=== PATIENT | female | born 1950 | race African-American/Black ===

== ENCOUNTER 2021-07-13 16:33 | Inpatient (IN) | payer MEDICARE ==
[~2021-07-13] VITALS: Ht 160 cm; Wt 83.0 kg
[~2021-07-13 16:33] MED LIST: ATOR10TA69 PO; CARI350T27 PO; FERR-63 PO; FOLI-43 PO; METH4TAB17 PO; MULT-1146 PO; OLME1TAB30 PO; ROSU5TAB PO; [UNRECOGNIZED DRUG - CODE] PO
[2021-07-13] MEDS ORDERED: SODIUM CHLORIDE 0.9% 1000ML BAG (SEPSIS BOLUS) IV ONE (17:00)
[2021-07-13 18:25] LABS: HEMATOCRIT. 35.7 % (36.0-48.0); HEMOGLOBIN. 11.8 g/dL (12.0-16.0); MEAN CORPUSCULAR HEMOGLOBIN 24.8 pg (28.0-32.0); MEAN CORPUSCULAR VOLUME 75.2 fL (81.0-99.0); MEAN PLATELET VOLUME 7.1 fl (7.4-10.4); PLATELET 421 x1000/uL (130-400); RED BLOOD CELL COUNT 4.74 mill/uL (4.2-5.4); RED CELL DISTRIBUTION WIDTH 19.4 % (11.6-14.6)
[2021-07-13 18:26] LABS: CHLORIDE 110 mEq/L (98-107)
[2021-07-13 18:46] LABS: CREATINE KINASE 1944 IU/L (26-192)
[2021-07-13 19:00] LABS: PLATELET ESTIMATE INCREASED
[2021-07-13 20:22] LABS: CLARITY URINE TURBID (CLEAR); COLOR URINE ORANGE (YELLOW); KETONES URINE TRACE (NEGATIVE); LEUKOCYTE ESTERASE URINE 3+ (NEGATIVE); NITRITE URINE POSITIVE (NEGATIVE); OCCULT BLOOD URINE 3+ (NEGATIVE); PROTEIN URINE 2+ (NEGATIVE); SPECIFIC GRAVITY URINE 1.014 (1.005-1.030)
[2021-07-13] MEDS ORDERED: CEFTRIAXONE 1 G PREMIX 50 ML IV ONE (22:00)
[2021-07-13] MEDS ORDERED: MAGNESIUM/ALUMINUM HYDROXIDE/SIMETHICONE 30ML UDC PO PRN (23:15)
[2021-07-13] MEDS ORDERED: GUAIFENESIN 200MG/10ML SUGAR FREE UDC PO PRN (23:15)
[2021-07-14 00:36] VITALS: BP 145/78
[2021-07-14] MEDS: SODIUM CHLORIDE 0.45% 1,000 ML IV SCH ×2 (01:26→08:00)
[2021-07-14 07:49] VITALS: BP 149/81
[2021-07-14] MEDS: ACETAMINOPHEN 325MG TABLET PO PRN ×2 (08:00→21:32)
[2021-07-14] MEDS: ENOXAPARIN 30MG/0.3ML SYR SUBCUT SCH (08:00)
[2021-07-14 08:11] LABS: HEMATOCRIT. 32.4 % (36.0-48.0); HEMOGLOBIN. 10.7 g/dL (12.0-16.0); MEAN CORPUSCULAR HEMOGLOBIN 24.7 pg (28.0-32.0); MEAN CORPUSCULAR VOLUME 74.6 fL (81.0-99.0); MEAN PLATELET VOLUME 7.1 fl (7.4-10.4); PLATELET 395 x1000/uL (130-400); RED BLOOD CELL COUNT 4.34 mill/uL (4.2-5.4); RED CELL DISTRIBUTION WIDTH 19.3 % (11.6-14.6)
[2021-07-14] MEDS ORDERED: POTASSIUM CHLORIDE 20MEQ TABLET SR PO NR (11:00)
[2021-07-14] MEDS ORDERED: POTASSIUM CHLORIDE INJ 40 MEQ in DEXT 5% WATER 250 ML IV ONE (11:00)
[2021-07-14] MEDS: KCL 20MEQ/100ML X 2 FOR TOTAL KCL 40MEQ/200ML IV SCH ×2 (11:43→14:04)
[2021-07-14 11:56] VITALS: BP 142/76
[2021-07-14] MEDS ORDERED: ASPI-1497 PO (12:37)
[2021-07-14] MEDS ORDERED: DICL100G31 TP (12:37)
[2021-07-14] MEDS ORDERED: OMEP20CA14 PO (12:37)
[2021-07-14] MEDS ORDERED: VANCOMYCIN 1500MG in DEXTROSE 5% WATER 250ML IV NR (14:00)
[2021-07-14] MEDS: ASPIRIN 81MG EC TABLET PO SCH (14:09)
[2021-07-14] MEDS: OMEPRAZOLE 20MG CAPSULE EXTENDED RELEASE PO SCH (14:09)
[2021-07-14] MEDS: FOLIC ACID 1MG TABLET PO SCH (14:10)
[2021-07-14] MEDS: LOSARTAN POTASSIUM 25 MG TABLET PO SCH (14:10)
[2021-07-14] MEDS: DEXTROSE 5% WATER 1,000 ML IV SCH ×2 (14:25→21:14)
[2021-07-14 15:42] LABS: PLATELET ESTIMATE NORMAL
[2021-07-14 15:43] VITALS: BP 140/70
[2021-07-14 20:00] VITALS: BP 147/79
[2021-07-14] MEDS ORDERED: CEFTRIAXONE 1,000 MG in DEXTROSE 5% WATER 50 ML IV SCH ×4 (21:00)
[2021-07-15] VITALS: BP 157/80
[2021-07-15] MEDS: ACETAMINOPHEN 325MG TABLET PO PRN ×3 (02:12→15:46)
[2021-07-15 04:00] VITALS: BP 147/81
[2021-07-15 04:09] LABS: HEMATOCRIT. 32.2 % (36.0-48.0); HEMOGLOBIN. 10.6 g/dL (12.0-16.0); MEAN CORPUSCULAR HEMOGLOBIN 24.4 pg (28.0-32.0); MEAN CORPUSCULAR VOLUME 74.1 fL (81.0-99.0); MEAN PLATELET VOLUME 6.8 fl (7.4-10.4); PLATELET 336 x1000/uL (130-400); RED BLOOD CELL COUNT 4.35 mill/uL (4.2-5.4); RED CELL DISTRIBUTION WIDTH 19.4 % (11.6-14.6)
[2021-07-15 04:22] LABS: PHOSPHORUS 2.4 mg/dL (2.5-4.9)
[2021-07-15] MEDS: KCL 20MEQ/100ML PREMIX 100 ML IV SCH ×2 (05:40→08:14)
[2021-07-15] MEDS: DEXTROSE 5% WATER 1,000 ML IV SCH ×3 (05:41→23:15)
[2021-07-15] MEDS: OMEPRAZOLE 20MG CAPSULE EXTENDED RELEASE PO SCH ×2 (05:50→08:14)
[2021-07-15 07:54] VITALS: BP 152/80
[2021-07-15] MEDS: LOSARTAN POTASSIUM 25 MG TABLET PO SCH (08:14)
[2021-07-15] MEDS: ASPIRIN 81MG EC TABLET PO SCH (08:14)
[2021-07-15] MEDS: FOLIC ACID 1MG TABLET PO SCH (08:14)
[2021-07-15] MEDS: AMLODIPINE 10MG TABLET PO SCH (08:14)
[2021-07-15] MEDS: ENOXAPARIN 30MG/0.3ML SYR SUBCUT SCH (08:15)
[2021-07-15 11:35] VITALS: BP 139/76
[2021-07-15] MEDS ORDERED: NALOXONE HCL 0.4MG/ML VIAL IV PRN (14:00)
[2021-07-15 16:04] VITALS: BP 145/78
[2021-07-15 20:00] VITALS: BP 146/84
[2021-07-15] MEDS ORDERED: VANCOMYCIN 1GM PMX (XELLIA) 200 ML IV SCH (21:00)
[2021-07-15 23:50] LABS: PLATELET ESTIMATE NORMAL
[2021-07-16] VITALS (7 sets, daily range): BP systolic 126–167; BP diastolic 75–90
[2021-07-16] MEDS: ACETAMINOPHEN 325MG TABLET PO PRN ×3 (02:57→14:15)
[2021-07-16] MEDS: CLONIDINE 0.1MG TABLET PO PRN ×2 (03:13→19:58)
[2021-07-16] MEDS: DEXTROSE 5% WATER 1,000 ML IV SCH ×3 (06:10→22:21)
[2021-07-16 07:05] LABS: HEMATOCRIT. 32.7 % (36.0-48.0); HEMOGLOBIN. 10.7 g/dL (12.0-16.0); MEAN CORPUSCULAR HEMOGLOBIN 24.5 pg (28.0-32.0); MEAN CORPUSCULAR VOLUME 74.9 fL (81.0-99.0); MEAN PLATELET VOLUME 6.8 fl (7.4-10.4); PLATELET 272 x1000/uL (130-400); RED BLOOD CELL COUNT 4.37 mill/uL (4.2-5.4); RED CELL DISTRIBUTION WIDTH 19.9 % (11.6-14.6)
[2021-07-16 07:13] LABS: PHOSPHORUS 2.6 mg/dL (2.5-4.9)
[2021-07-16] MEDS: LOSARTAN POTASSIUM 25 MG TABLET PO SCH (08:12)
[2021-07-16] MEDS: FAMOTIDINE 20MG TABLET PO SCH (08:12)
[2021-07-16] MEDS: ASPIRIN 81MG EC TABLET PO SCH (08:12)
[2021-07-16] MEDS: AMLODIPINE 10MG TABLET PO SCH (08:12)
[2021-07-16] MEDS: FOLIC ACID 1MG TABLET PO SCH (08:12)
[2021-07-16] MEDS: ENOXAPARIN 30MG/0.3ML SYR SUBCUT SCH (08:13)
[2021-07-16 12:40] LABS: PLATELET ESTIMATE NORMAL
[2021-07-16] MEDS: HYDROCODONE/ACETAMINOPHEN 5/325MG TABLET PO PRN ×2 (16:00→19:59)
[2021-07-16] MEDS ORDERED: DEXTROSE 50% WATER 50ML SYRINGE IV PRN (17:45)
[2021-07-16 18:04] LABS: BG BASE EXCESS -4.3 mmol/L (-2.0-2.0); BG CARBOXYHEMOGLOBIN 0.8 % (0.5-1.5); BG DEOXYHEMOGLOBIN 3.6 % (0.0-5.0); BG FRACTION INSPIRED OXYGEN 21; BG HCO3 ACT 18.4 mmol/L (22.0-26.0); BG METHEMOGLOBIN 0.3 % (0.0-1.5); BG OXYGEN SATURATION 96.4 % (92.0-98.5); BG OXYHEMOGLOBIN 95.3 % (94.0-97.0); BG PCO2 26.9 mmHg (35.0-45.0); BG PH 7.454 (7.350-7.450); BG PO2 87.5 mmHg (75.0-100.0); BG SAMPLE SITE RIGHT BRACHIAL; BG TOTAL HEMOGLOBIN 10.7 g/dL (12.0-18.0); BG VENT MODE ROOM AIR
[2021-07-16] MEDS ORDERED: POTASSIUM CHLORIDE INJ 40 MEQ in DEXT 5% WATER 250 ML IV ONE (18:45)
[2021-07-16] MEDS ORDERED: PIPERACILLIN/TAZOBACTAM 3.375 G in DEXTROSE 5% WATER 50 ML IV SCH (20:00)
[2021-07-16] MEDS: KCL 20MEQ/100ML X 2 FOR TOTAL KCL 40MEQ/200ML IV SCH ×2 (20:22→22:20)
[2021-07-16] MEDS: VANCOMYCIN 1GM PMX (XELLIA) 200 ML IV SCH (20:23)
[2021-07-16 20:39] LABS: INR 1.1; PROTHROMBIN TIME 11.6 sec (9.6-11.0)
[2021-07-16] MEDS: BLOOD SUGAR DIAGNOSTIC STRIP TEST SCH (21:14)
[2021-07-16] MEDS: INSULIN LISPRO 100 UNITS/ML SUBCUT SCH (22:19)
[2021-07-16] MEDS: PIPERACILLIN/TAZOBACTAM 3.375 G in DEXTROSE 5% WATER 50 ML IV SCH (22:21)
[2021-07-17] VITALS (10 sets, daily range): BP systolic 137–153; BP diastolic 56–88
[2021-07-17] MEDS: HYDROCODONE/ACETAMINOPHEN 5/325MG TABLET PO PRN ×2 (00:46→05:45)
[2021-07-17] MEDS: PIPERACILLIN/TAZOBACTAM 3.375 G in DEXTROSE 5% WATER 50 ML IV SCH ×3 (05:44→21:12)
[2021-07-17 06:00] LABS: HEMATOCRIT. 33.2 % (36.0-48.0); MEAN CORPUSCULAR HEMOGLOBIN 24.6 pg (28.0-32.0); MEAN CORPUSCULAR VOLUME 74.5 fL (81.0-99.0); MEAN PLATELET VOLUME 6.9 fl (7.4-10.4); PLATELET 254 x1000/uL (130-400); RED BLOOD CELL COUNT 4.46 mill/uL (4.2-5.4); RED CELL DISTRIBUTION WIDTH 19.9 % (11.6-14.6)
[2021-07-17 06:20] LABS: CHLORIDE 116 mEq/L (98-107)
[2021-07-17 06:28] LABS: CREATINE KINASE 48 IU/L (26-192)
[2021-07-17 07:13] LABS: *CREATININE RANDOM URINE 48.7 mg/dL (Not Estab.); MICROALBUMIN RANDOM URINE 51.3 ug/mL (Not Estab.)
[2021-07-17] MEDS: BLOOD SUGAR DIAGNOSTIC STRIP TEST SCH ×4 (07:30→20:58)
[2021-07-17] MEDS: INSULIN LISPRO 100 UNITS/ML SUBCUT SCH ×4 (08:00→20:57)
[2021-07-17] MEDS: LOSARTAN POTASSIUM 25 MG TABLET PO SCH (09:00)
[2021-07-17] MEDS: AMLODIPINE 10MG TABLET PO SCH (09:00)
[2021-07-17] MEDS: ASPIRIN 81MG EC TABLET PO SCH (09:00)
[2021-07-17] MEDS: FAMOTIDINE 20MG TABLET PO SCH (09:00)
[2021-07-17] MEDS: FOLIC ACID 1MG TABLET PO SCH (09:00)
[2021-07-17] MEDS: ENOXAPARIN 30MG/0.3ML SYR SUBCUT SCH (09:26)
[2021-07-17] MEDS ORDERED: POTASSIUM CHLORIDE INJ 40 MEQ in DEXT 5% WATER 250 ML IV ONE (10:15)
[2021-07-17] MEDS ORDERED: NA PHOS,M-B/NA PHOS,DI-BA ENEMA 118ML PR NR (10:30)
[2021-07-17] MEDS: DEXTROSE 5% WATER 1,000 ML IV SCH ×2 (11:32→20:58)
[2021-07-17] MEDS: KCL 20MEQ/100ML X 2 FOR TOTAL KCL 40MEQ/200ML IV SCH ×2 (11:33→17:08)
[2021-07-17 13:49] LABS: BG BASE EXCESS -3.9 mmol/L (-2.0-2.0); BG DEOXYHEMOGLOBIN 5.3 % (0.0-5.0); BG FRACTION INSPIRED OXYGEN 21; BG HCO3 ACT 18.8 mmol/L (22.0-26.0); BG METHEMOGLOBIN 0.3 % (0.0-1.5); BG OXYGEN SATURATION 94.6 % (92.0-98.5); BG OXYHEMOGLOBIN 93.4 % (94.0-97.0); BG PCO2 27.3 mmHg (35.0-45.0); BG PH 7.457 (7.350-7.450); BG PO2 73.2 mmHg (75.0-100.0); BG SAMPLE SITE RIGHT BRACHIAL; BG TOTAL HEMOGLOBIN 10.9 g/dL (12.0-18.0); BG VENT MODE ROOM AIR
[2021-07-17 14:12] LABS: PLATELET ESTIMATE NORMAL
[2021-07-17] MEDS ORDERED: LIDOCAINE HCL 1% 20ML VIAL (Pyxis) INJ ONE (14:16)
[2021-07-17] MEDS ORDERED: ACETAMINOPHEN 650MG SUPP PR PRN (17:00)
[2021-07-17] MEDS: VANCOMYCIN 1GM PMX (XELLIA) 200 ML IV SCH (20:53)
[2021-07-17] MEDS: ONDANSETRON HCL 4MG/2ML INJ IV PRN (20:55)
[2021-07-17] MEDS: MORPHINE SULFATE 2 MG/ML CPJ (NOT FOR IM USE) IV PRN (20:56)
[2021-07-17] MEDS ORDERED: ONDANSETRON HCL 4MG/2ML INJ ONE (20:59)
[2021-07-18] VITALS (10 sets, daily range): BP systolic 117–149; BP diastolic 63–80
[2021-07-18] MEDS: MORPHINE SULFATE 2 MG/ML CPJ (NOT FOR IM USE) IV PRN (04:49)
[2021-07-18] MEDS: ONDANSETRON HCL 4MG/2ML INJ IV PRN (04:49)
[2021-07-18] MEDS: PIPERACILLIN/TAZOBACTAM 3.375 G in DEXTROSE 5% WATER 50 ML IV SCH ×3 (04:54→22:43)
[2021-07-18] MEDS: DEXTROSE 5% WATER 1,000 ML IV SCH (04:54)
[2021-07-18 06:05] LABS: HEMATOCRIT. 30.5 % (36.0-48.0); MEAN CORPUSCULAR HEMOGLOBIN 24.3 pg (28.0-32.0); MEAN CORPUSCULAR VOLUME 74.3 fL (81.0-99.0); PLATELET 271 x1000/uL (130-400); RED BLOOD CELL COUNT 4.11 mill/uL (4.2-5.4); RED CELL DISTRIBUTION WIDTH 19.7 % (11.6-14.6)
[2021-07-18 06:15] LABS: INR 1.1
[2021-07-18] MEDS: BLOOD SUGAR DIAGNOSTIC STRIP TEST SCH ×4 (07:43→21:00)
[2021-07-18] MEDS: INSULIN LISPRO 100 UNITS/ML SUBCUT SCH ×4 (08:27→21:00)
[2021-07-18 09:15] LABS: PLATELET ESTIMATE NORMAL
[2021-07-18] MEDS: FOLIC ACID 1MG TABLET PO SCH (09:31)
[2021-07-18] MEDS: AMLODIPINE 10MG TABLET PO SCH (09:31)
[2021-07-18] MEDS: LOSARTAN POTASSIUM 25 MG TABLET PO SCH (09:31)
[2021-07-18] MEDS: FAMOTIDINE 20MG TABLET PO SCH (09:31)
[2021-07-18] MEDS ORDERED: POTASSIUM CHLORIDE INJ 40 MEQ in DEXT 5% WATER 250 ML IV ONE (10:30)
[2021-07-18] MEDS ORDERED: LIDOCAINE HCL 1% 10 MG/ML 10ML VIAL ONE (11:04)
[2021-07-18] MEDS ORDERED: SODIUM BICARBONATE 4% (2.4MEQ) 5ML VIAL IV ONE (11:04)
[2021-07-18] MEDS: KCL 20MEQ/100ML X 2 FOR TOTAL KCL 40MEQ/200ML IV SCH ×2 (13:36→18:11)
[2021-07-18] MEDS: VANCOMYCIN 1GM PMX (XELLIA) 200 ML IV SCH (16:01)
[2021-07-19] VITALS (11 sets, daily range): BP systolic 128–154; BP diastolic 72–84
[2021-07-19] MEDS: MORPHINE SULFATE 2 MG/ML CPJ (NOT FOR IM USE) IV PRN (04:40)
[2021-07-19] MEDS: PIPERACILLIN/TAZOBACTAM 3.375 G in DEXTROSE 5% WATER 50 ML IV SCH ×3 (05:05→21:56)
[2021-07-19 06:24] LABS: CHLORIDE 122 mEq/L (98-107)
[2021-07-19 06:31] LABS: HEMATOCRIT. 31.1 % (36.0-48.0); HEMOGLOBIN. 10.1 g/dL (12.0-16.0); MEAN CORPUSCULAR HEMOGLOBIN 24.5 pg (28.0-32.0); MEAN CORPUSCULAR VOLUME 75.1 fL (81.0-99.0); MEAN PLATELET VOLUME 7.2 fl (7.4-10.4); PLATELET 287 x1000/uL (130-400); RED BLOOD CELL COUNT 4.14 mill/uL (4.2-5.4); RED CELL DISTRIBUTION WIDTH 19.6 % (11.6-14.6)
[2021-07-19 06:45] LABS: HEPATITIS B SURFACE ANTIGEN NEGATIVE
[2021-07-19] MEDS: BLOOD SUGAR DIAGNOSTIC STRIP TEST SCH ×4 (07:30→21:00)
[2021-07-19] MEDS: INSULIN LISPRO 100 UNITS/ML SUBCUT SCH ×4 (08:00→21:56)
[2021-07-19] MEDS: VANCOMYCIN 1GM PMX (XELLIA) 200 ML IV SCH (08:30)
[2021-07-19] MEDS: FOLIC ACID 1MG TABLET PO SCH (08:48)
[2021-07-19] MEDS: LOSARTAN POTASSIUM 25 MG TABLET PO SCH (08:48)
[2021-07-19] MEDS: AMLODIPINE 10MG TABLET PO SCH (08:48)
[2021-07-19] MEDS: FAMOTIDINE 20MG TABLET PO SCH (08:49)
[2021-07-19 08:55] LABS: PLATELET ESTIMATE NORMAL
[2021-07-19] MEDS ORDERED: MIDAZOLAM HCL 2 MG/2 ML VIAL ONE (12:15)
[2021-07-19] MEDS ORDERED: FENTANYL CITRATE/PF 50MCG/ML 2ML VIAL ONE (12:15)
[2021-07-19] MEDS ORDERED: LIDOCAINE HCL 2% JELLY 5ML ONE (12:15)
[2021-07-19] MEDS ORDERED: TETRACAINE/BENZOCAINE/BUTAMBEN 20 GM SPRAY MM ONE (12:15)
[2021-07-19] MEDS: DEXTROSE 5% WATER 1,000 ML IV SCH (20:32)
[2021-07-20] VITALS (58 sets, daily range): BP systolic 91–176; BP diastolic 16–90
[2021-07-20] MEDS: VANCOMYCIN 1GM PMX (XELLIA) 200 ML IV SCH ×2 (02:19→22:18)
[2021-07-20] MEDS: PIPERACILLIN/TAZOBACTAM 3.375 G in DEXTROSE 5% WATER 50 ML IV SCH ×3 (05:22→21:07)
[2021-07-20 05:54] LABS: HEMATOCRIT. 33.2 % (36.0-48.0); HEMOGLOBIN. 10.4 g/dL (12.0-16.0); MEAN CORPUSCULAR VOLUME 76.5 fL (81.0-99.0); MEAN PLATELET VOLUME 7.3 fl (7.4-10.4); PLATELET 318 x1000/uL (130-400); RED BLOOD CELL COUNT 4.34 mill/uL (4.2-5.4); RED CELL DISTRIBUTION WIDTH 19.4 % (11.6-14.6)
[2021-07-20 07:02] LABS: CHLORIDE 125 mEq/L (98-107)
[2021-07-20] MEDS ORDERED: GADOTERATE MEGLUMINE 5 MMOL/10 ML VIAL IV ONE (07:38)
[2021-07-20] MEDS: INSULIN LISPRO 100 UNITS/ML SUBCUT SCH ×4 (08:00→21:08)
[2021-07-20] MEDS: BLOOD SUGAR DIAGNOSTIC STRIP TEST SCH ×4 (08:17→21:07)
[2021-07-20 08:31] LABS: PLATELET ESTIMATE NORMAL
[2021-07-20] MEDS: FAMOTIDINE 20MG TABLET PO SCH (09:00)
[2021-07-20] MEDS: FOLIC ACID 1MG TABLET PO SCH (09:00)
[2021-07-20] MEDS: AMLODIPINE 10MG TABLET PO SCH (09:00)
[2021-07-20] MEDS ORDERED: GENTAMICIN SULF 40MG/ML 2ML VIAL ONE (09:12)
[2021-07-20] MEDS ORDERED: THROMBIN (BOVINE) 5000 UNITS/VIAL TOP ONE (09:13)
[2021-07-20] MEDS ORDERED: LIDOCAINE HCL/EPINEPHRINE 1%-EPI 1:100,000 20 ML VIAL ONE (09:13)
[2021-07-20] MEDS ORDERED: NEOSTIGMINE METHYLSULFATE 1MG/ML 10 ML VIAL ONE (09:46)
[2021-07-20] MEDS ORDERED: FENTANYL CITRATE/PF 50MCG/ML 2ML VIAL ONE (09:46)
[2021-07-20] MEDS ORDERED: DEXAMETHASONE 4MG/ML 1ML VIAL ONE (09:47)
[2021-07-20] MEDS ORDERED: ROCURONIUM BROMIDE 10MG/ML VIAL 5ML IV ONE (09:47)
[2021-07-20] MEDS ORDERED: GLYCOPYRROLATE 0.2 MG/ML 2ML VIAL ONE (09:47)
[2021-07-20] MEDS ORDERED: PROPOFOL 200MG/20ML VIAL IV ONE (09:47)
[2021-07-20] MEDS ORDERED: MIDAZOLAM HCL 2 MG/2 ML VIAL ONE (09:47)
[2021-07-20] MEDS ORDERED: ONDANSETRON HCL 4MG/2ML INJ ONE (09:50)
[2021-07-20] MEDS ORDERED: PHENYLEPHRINE HCL 10 MG/ML 1ML (IV VIAL) IV ONE (10:48)
[2021-07-20] MEDS ORDERED: SODIUM CHLORIDE 0.9% 10ML VIAL ONE (10:49)
[2021-07-20] MEDS ORDERED: HYDROMORPHONE HCL/PF 2MG/ML (OR) ONE (11:05)
[2021-07-20] MEDS ORDERED: ALBUMIN HUMAN 12.5G/250ML (5%) IV ONE (12:06)
[2021-07-20 12:18] LABS: BASOPHILS % 0.1 % (0.0-2.0); EOSINOPHILS % 0.3 % (0.0-5.0); HEMATOCRIT. 28.8 % (36.0-48.0); HEMOGLOBIN. 9.2 g/dL (12.0-16.0); LYMPHOCYTES % 7.6 % (20.0-50.0); MEAN CORPUSCULAR HEMOGLOBIN 24.5 pg (28.0-32.0); MEAN CORPUSCULAR VOLUME 76.4 fL (81.0-99.0); MEAN PLATELET VOLUME 7.2 fl (7.4-10.4); MONOCYTES % 4.9 % (2.0-8.0); NEUTROPHILS % 87.1 % (40.0-76.0); PLATELET 298 x1000/uL (130-400); RED BLOOD CELL COUNT 3.76 mill/uL (4.2-5.4); RED CELL DISTRIBUTION WIDTH 18.9 % (11.6-14.6)
[2021-07-20 12:25] LABS: CHLORIDE 127 mEq/L (98-107)
[2021-07-20 12:54] LABS: INR 1.1; PARTIAL THROMBOPLASTIN TIME 23.2 sec (23.4-31.0)
[2021-07-20] MEDS ORDERED: DEXT 5%/LACTATED RINGERS 1,000 ML IV SCH (13:00)
[2021-07-20 13:56] LABS: BG BASE EXCESS -6.1 mmol/L (-2.0-2.0); BG CARBOXYHEMOGLOBIN 0.2 % (0.5-1.5); BG DEOXYHEMOGLOBIN 1.6 % (0.0-5.0); BG FRACTION INSPIRED OXYGEN 50; BG HCO3 ACT 20.3 mmol/L (22.0-26.0); BG METHEMOGLOBIN 0.3 % (0.0-1.5); BG OXYGEN SATURATION 98.4 % (92.0-98.5); BG OXYHEMOGLOBIN 97.9 % (94.0-97.0); BG PCO2 43.9 mmHg (35.0-45.0); BG PH 7.282 (7.350-7.450); BG PO2 200.1 mmHg (75.0-100.0); BG SAMPLE SITE RIGHT RADIAL; BG TOTAL HEMOGLOBIN 8.9 g/dL (12.0-18.0); BG VENT MODE VENT - AC
[2021-07-20] MEDS: DEXTROSE 5% WATER 1,000 ML IV SCH ×3 (13:57→23:19)
[2021-07-20] MEDS: LOSARTAN POTASSIUM 25 MG TABLET PO SCH (14:32)
[2021-07-20] MEDS: NICARDIPINE 100 MG in SODIUM CHLORIDE 0.9% 60 ML IV PRN (15:18)
[2021-07-20] MEDS ORDERED: SODIUM BICARBONATE 8.4% 1 MEQ/ML 50ML SYR IV NR (16:15)
[2021-07-20 17:54] LABS: CHLORIDE 125 mEq/L (98-107)
[2021-07-20] MEDS: MORPHINE SULFATE 4 MG/ML CPJ (NOT FOR IM USE) IV PRN (19:38)
[2021-07-21] VITALS (87 sets, daily range): BP systolic 59–143; BP diastolic 42–86
[2021-07-21] MEDS: MORPHINE SULFATE 4 MG/ML CPJ (NOT FOR IM USE) IV PRN ×4 (02:51→20:51)
[2021-07-21 05:31] LABS: HEMATOCRIT. 23.4 % (36.0-48.0); HEMOGLOBIN. 7.6 g/dL (12.0-16.0); MEAN CORPUSCULAR HEMOGLOBIN 24.8 pg (28.0-32.0); MEAN CORPUSCULAR VOLUME 76.5 fL (81.0-99.0); MEAN PLATELET VOLUME 7.3 fl (7.4-10.4); PLATELET 225 x1000/uL (130-400); RED BLOOD CELL COUNT 3.06 mill/uL (4.2-5.4); RED CELL DISTRIBUTION WIDTH 18.9 % (11.6-14.6)
[2021-07-21] MEDS: BLOOD SUGAR DIAGNOSTIC STRIP TEST SCH ×4 (06:23→20:37)
[2021-07-21] MEDS: INSULIN LISPRO 100 UNITS/ML SUBCUT SCH ×4 (06:44→20:52)
[2021-07-21 07:43] LABS: BG BASE EXCESS -3.1 mmol/L (-2.0-2.0); BG CARBOXYHEMOGLOBIN 0.1 % (0.5-1.5); BG DEOXYHEMOGLOBIN 2.7 % (0.0-5.0); BG HCO3 ACT 20.4 mmol/L (22.0-26.0); BG METHEMOGLOBIN 0.3 % (0.0-1.5); BG OXYGEN SATURATION 97.3 % (92.0-98.5); BG OXYHEMOGLOBIN 96.9 % (94.0-97.0); BG PCO2 30.2 mmHg (35.0-45.0); BG PH 7.448 (7.350-7.450); BG PO2 106.1 mmHg (75.0-100.0); BG SAMPLE SITE RIGHT RADIAL; BG VENT MODE VENT - AC
[2021-07-21] MEDS: DEXTROSE 5% WATER 1,000 ML IV SCH ×2 (08:07→15:44)
[2021-07-21] MEDS: LOSARTAN POTASSIUM 25 MG TABLET PO SCH (08:07)
[2021-07-21] MEDS: FOLIC ACID 1MG TABLET PO SCH (08:08)
[2021-07-21] MEDS: FAMOTIDINE 20MG TABLET PO SCH (08:08)
[2021-07-21] MEDS: AMLODIPINE 10MG TABLET PO SCH (08:08)
[2021-07-21 08:12] LABS: PLATELET ESTIMATE NORMAL
[2021-07-21] MEDS ORDERED: LIDOCAINE HCL/PF 1% 2ML VIAL ONE (08:22)
[2021-07-21] MEDS: NICARDIPINE 100 MG in SODIUM CHLORIDE 0.9% 60 ML IV PRN (11:48)
[2021-07-21 13:33] LABS: BG BASE EXCESS -2.7 mmol/L (-2.0-2.0); BG CARBOXYHEMOGLOBIN 0.3 % (0.5-1.5); BG DEOXYHEMOGLOBIN 3.1 % (0.0-5.0); BG HCO3 ACT 20.8 mmol/L (22.0-26.0); BG METHEMOGLOBIN 0.3 % (0.0-1.5); BG OXYGEN SATURATION 96.9 % (92.0-98.5); BG OXYHEMOGLOBIN 96.3 % (94.0-97.0); BG PCO2 31.1 mmHg (35.0-45.0); BG PH 7.443 (7.350-7.450); BG PO2 98.2 mmHg (75.0-100.0); BG SAMPLE SITE RIGHT RADIAL; BG VENT MODE VENT - CPAP
[2021-07-21] MEDS: VANCOMYCIN 1GM PMX (XELLIA) 200 ML IV SCH (13:42)
[2021-07-21] MEDS: DEXT 5% WATER + KCL 20MEQ/L 1,000 ML IV SCH (21:47)
[2021-07-22] VITALS (82 sets, daily range): BP systolic 89–140; BP diastolic 43–73
[2021-07-22] MEDS: MORPHINE SULFATE 4 MG/ML CPJ (NOT FOR IM USE) IV PRN ×4 (03:50→23:26)
[2021-07-22 05:37] LABS: HEMATOCRIT. 22.9 % (36.0-48.0); HEMOGLOBIN. 7.4 g/dL (12.0-16.0); MEAN CORPUSCULAR HEMOGLOBIN 24.9 pg (28.0-32.0); MEAN CORPUSCULAR VOLUME 76.6 fL (81.0-99.0); MEAN PLATELET VOLUME 7.3 fl (7.4-10.4); PLATELET 205 x1000/uL (130-400); RED BLOOD CELL COUNT 2.99 mill/uL (4.2-5.4); RED CELL DISTRIBUTION WIDTH 18.3 % (11.6-14.6)
[2021-07-22] MEDS: BLOOD SUGAR DIAGNOSTIC STRIP TEST SCH ×4 (06:04→21:13)
[2021-07-22] MEDS: DEXT 5% WATER + KCL 20MEQ/L 1,000 ML IV SCH ×3 (06:05→21:16)
[2021-07-22] MEDS: INSULIN LISPRO 100 UNITS/ML SUBCUT SCH ×4 (06:18→21:17)
[2021-07-22] MEDS ORDERED: POTASSIUM CHLORIDE INJ 40 MEQ in DEXT 5% WATER 250 ML IV ONE (08:45)
[2021-07-22 09:36] LABS: PLATELET ESTIMATE NORMAL
[2021-07-22] MEDS ORDERED: VANCOMYCIN 1.25GM PMX (XELLIA) 250 ML IV SCH (10:00)
[2021-07-22] MEDS: FAMOTIDINE 20MG TABLET PO SCH (10:20)
[2021-07-22] MEDS: AMLODIPINE 10MG TABLET PO SCH (10:20)
[2021-07-22] MEDS: LOSARTAN POTASSIUM 25 MG TABLET PO SCH (10:20)
[2021-07-22] MEDS: FOLIC ACID 1MG TABLET PO SCH (10:21)
[2021-07-22] MEDS: KCL 20MEQ/100ML X 2 FOR TOTAL KCL 40MEQ/200ML IV SCH ×3 (11:26→13:32)
[2021-07-22] MEDS: METOCLOPRAMIDE HCL 10MG/2ML VIAL IV SCH (17:39)
[2021-07-22] MEDS: BISACODYL 10MG SUPP PR SCH (17:39)
[2021-07-22] MEDS: VANCOMYCIN 750MG PMX (XELLIA) 150 ML IV SCH (21:16)
[2021-07-22] MEDS ORDERED: VANCOMYCIN 750MG PREMIX 150 ML IV SCH (22:00)
[2021-07-23] VITALS (69 sets, daily range): BP systolic 105–152; BP diastolic 32–86
[2021-07-23] MEDS: METOCLOPRAMIDE HCL 10MG/2ML VIAL IV SCH ×4 (00:48→18:00)
[2021-07-23 05:56] LABS: CHLORIDE 113 mEq/L (98-107)
[2021-07-23] MEDS: DEXT 5% WATER + KCL 20MEQ/L 1,000 ML IV SCH ×2 (06:17→11:52)
[2021-07-23] MEDS: INSULIN LISPRO 100 UNITS/ML SUBCUT SCH ×4 (06:18→21:00)
[2021-07-23] MEDS: BLOOD SUGAR DIAGNOSTIC STRIP TEST SCH ×4 (06:19→21:00)
[2021-07-23] MEDS: MORPHINE SULFATE 4 MG/ML CPJ (NOT FOR IM USE) IV PRN (06:19)
[2021-07-23] MEDS: LOSARTAN POTASSIUM 25 MG TABLET PO SCH (08:25)
[2021-07-23] MEDS: FOLIC ACID 1MG TABLET PO SCH (08:26)
[2021-07-23] MEDS: AMLODIPINE 10MG TABLET PO SCH (08:26)
[2021-07-23] MEDS: FAMOTIDINE 20MG TABLET PO SCH (08:26)
[2021-07-23 08:54] LABS: HEMOGLOBIN. 7.7 g/dL (12.0-16.0); MEAN CORPUSCULAR HEMOGLOBIN 24.9 pg (28.0-32.0); MEAN PLATELET VOLUME 6.9 fl (7.4-10.4); PLATELET 207 x1000/uL (130-400); RED BLOOD CELL COUNT 3.11 mill/uL (4.2-5.4); RED CELL DISTRIBUTION WIDTH 18.7 % (11.6-14.6)
[2021-07-23 09:46] LABS: BG BASE EXCESS -6.3 mmol/L (-2.0-2.0); BG CARBOXYHEMOGLOBIN 0.2 % (0.5-1.5); BG DEOXYHEMOGLOBIN 2.5 % (0.0-5.0); BG FRACTION INSPIRED OXYGEN 30; BG HCO3 ACT 17.4 mmol/L (22.0-26.0); BG METHEMOGLOBIN 0.1 % (0.0-1.5); BG OXYGEN SATURATION 97.5 % (92.0-98.5); BG OXYHEMOGLOBIN 97.2 % (94.0-97.0); BG PCO2 27.7 mmHg (35.0-45.0); BG PH 7.417 (7.350-7.450); BG SAMPLE SITE RIGHT RADIAL; BG TOTAL HEMOGLOBIN 7.8 g/dL (12.0-18.0); BG VENT MODE VENT - CPAP
[2021-07-23 09:52] LABS: PLATELET ESTIMATE NORMAL
[2021-07-23] MEDS: VANCOMYCIN 750MG PMX (XELLIA) 150 ML IV SCH ×2 (09:54→22:09)
[2021-07-23] MEDS: BISACODYL 10MG SUPP PR SCH (09:54)
[2021-07-23 15:00] LABS: BG BASE EXCESS -6.4 mmol/L (-2.0-2.0); BG CARBOXYHEMOGLOBIN 0.7 % (0.5-1.5); BG DEOXYHEMOGLOBIN 2.9 % (0.0-5.0); BG FRACTION INSPIRED OXYGEN 40; BG METHEMOGLOBIN 0.3 % (0.0-1.5); BG OXYGEN SATURATION 97.1 % (92.0-98.5); BG OXYHEMOGLOBIN 96.1 % (94.0-97.0); BG PCO2 25.9 mmHg (35.0-45.0); BG PH 7.434 (7.350-7.450); BG PO2 101.4 mmHg (75.0-100.0); BG SAMPLE SITE RIGHT RADIAL; BG TOTAL HEMOGLOBIN 7.7 g/dL (12.0-18.0); BG VENT MODE COOL AEROSOL
[2021-07-24] VITALS (69 sets, daily range): BP systolic 118–169; BP diastolic 57–106
[2021-07-24] MEDS: METOCLOPRAMIDE HCL 10MG/2ML VIAL IV SCH ×4 (05:44→17:04)
[2021-07-24] MEDS: DEXT 5% WATER + KCL 20MEQ/L 1,000 ML IV SCH ×2 (05:44→15:43)
[2021-07-24] MEDS: BLOOD SUGAR DIAGNOSTIC STRIP TEST SCH ×4 (05:44→20:45)
[2021-07-24] MEDS: CLONIDINE 0.1MG TABLET PO PRN (05:44)
[2021-07-24 05:55] LABS: HEMATOCRIT. 29.8 % (36.0-48.0); HEMOGLOBIN. 9.6 g/dL (12.0-16.0); MEAN CORPUSCULAR HEMOGLOBIN 25.5 pg (28.0-32.0); MEAN CORPUSCULAR VOLUME 79.5 fL (81.0-99.0); MEAN PLATELET VOLUME 7.3 fl (7.4-10.4); PLATELET 236 x1000/uL (130-400); RED BLOOD CELL COUNT 3.75 mill/uL (4.2-5.4); RED CELL DISTRIBUTION WIDTH 17.7 % (11.6-14.6)
[2021-07-24] MEDS: INSULIN LISPRO 100 UNITS/ML SUBCUT SCH ×4 (06:06→21:00)
[2021-07-24 06:23] LABS: CHLORIDE 114 mEq/L (98-107)
[2021-07-24 08:00] LABS: BG BASE EXCESS -3.5 mmol/L (-2.0-2.0); BG CARBOXYHEMOGLOBIN 0.3 % (0.5-1.5); BG DEOXYHEMOGLOBIN 2.2 % (0.0-5.0); BG HCO3 ACT 19.4 mmol/L (22.0-26.0); BG METHEMOGLOBIN 0.3 % (0.0-1.5); BG OXYGEN SATURATION 97.8 % (92.0-98.5); BG OXYHEMOGLOBIN 97.2 % (94.0-97.0); BG PCO2 27.5 mmHg (35.0-45.0); BG PH 7.466 (7.350-7.450); BG PO2 117.5 mmHg (75.0-100.0); BG SAMPLE SITE RIGHT RADIAL; BG TOTAL HEMOGLOBIN 9.6 g/dL (12.0-18.0); BG VENT MODE NASAL CANNULA
[2021-07-24] MEDS: BISACODYL 10MG SUPP PR SCH (09:09)
[2021-07-24] MEDS: FAMOTIDINE 20MG TABLET PO SCH (09:09)
[2021-07-24] MEDS: FOLIC ACID 1MG TABLET PO SCH (09:09)
[2021-07-24] MEDS: VANCOMYCIN 750MG PMX (XELLIA) 150 ML IV SCH ×2 (09:09→21:53)
[2021-07-24] MEDS: LOSARTAN POTASSIUM 25 MG TABLET PO SCH (09:09)
[2021-07-24] MEDS: AMLODIPINE 10MG TABLET PO SCH (09:10)
[2021-07-24] MEDS: HYDRALAZINE 20MG/ML VIAL IV PRN ×2 (09:36→17:34)
[2021-07-24] MEDS: MORPHINE SULFATE 4 MG/ML CPJ (NOT FOR IM USE) IV PRN ×2 (12:06→17:04)
[2021-07-24] MEDS ORDERED: METOPROLOL TARTRATE 25MG TABLET PO NR (12:15)
[2021-07-24 13:04] LABS: PLATELET ESTIMATE NORMAL
[2021-07-24] MEDS: METOPROLOL TARTRATE 25MG TABLET PO SCH (20:59)
[2021-07-25] VITALS (26 sets, daily range): BP systolic 118–156; BP diastolic 42–97
[2021-07-25] MEDS: METOCLOPRAMIDE HCL 10MG/2ML VIAL IV SCH ×4 (00:13→17:42)
[2021-07-25] MEDS: HYDRALAZINE 20MG/ML VIAL IV PRN (00:14)
[2021-07-25] MEDS: CLONIDINE 0.1MG TABLET PO PRN (02:08)
[2021-07-25 05:59] LABS: HEMOGLOBIN. 9.5 g/dL (12.0-16.0); MEAN CORPUSCULAR HEMOGLOBIN 25.8 pg (28.0-32.0); MEAN CORPUSCULAR VOLUME 78.9 fL (81.0-99.0); PLATELET 296 x1000/uL (130-400); RED BLOOD CELL COUNT 3.67 mill/uL (4.2-5.4); RED CELL DISTRIBUTION WIDTH 17.9 % (11.6-14.6)
[2021-07-25 06:14] LABS: CHLORIDE 114 mEq/L (98-107)
[2021-07-25] MEDS: BLOOD SUGAR DIAGNOSTIC STRIP TEST SCH ×4 (06:40→21:00)
[2021-07-25] MEDS: INSULIN LISPRO 100 UNITS/ML SUBCUT SCH ×4 (07:00→21:00)
[2021-07-25 07:35] LABS: PLATELET ESTIMATE NORMAL
[2021-07-25] MEDS: FAMOTIDINE 20MG TABLET PO SCH (08:32)
[2021-07-25] MEDS: FOLIC ACID 1MG TABLET PO SCH (08:33)
[2021-07-25] MEDS: LOSARTAN POTASSIUM 25 MG TABLET PO SCH (08:33)
[2021-07-25] MEDS: BISACODYL 10MG SUPP PR SCH (08:33)
[2021-07-25] MEDS: METOPROLOL TARTRATE 25MG TABLET PO SCH ×2 (08:33→22:02)
[2021-07-25] MEDS: AMLODIPINE 10MG TABLET PO SCH (08:36)
[2021-07-25] MEDS: VANCOMYCIN 750MG PMX (XELLIA) 150 ML IV SCH ×2 (10:50→22:01)
[2021-07-26] VITALS: BP 149/75
[2021-07-26] MEDS: METOCLOPRAMIDE HCL 10MG/2ML VIAL IV SCH ×5 (00:46→23:37)
[2021-07-26 04:00] VITALS: BP 146/71
[2021-07-26] MEDS: HYDRALAZINE 20MG/ML VIAL IV PRN (05:31)
[2021-07-26] MEDS: ACETAMINOPHEN 325MG TABLET PO PRN ×3 (05:46→17:37)
[2021-07-26 07:29] LABS: BASOPHILS % 1.1 % (0.0-2.0); EOSINOPHILS % 0.9 % (0.0-5.0); HEMATOCRIT. 30.1 % (36.0-48.0); HEMOGLOBIN. 9.7 g/dL (12.0-16.0); LYMPHOCYTES % 11.9 % (20.0-50.0); MEAN CORPUSCULAR HEMOGLOBIN 24.9 pg (28.0-32.0); MEAN CORPUSCULAR VOLUME 77.6 fL (81.0-99.0); MEAN PLATELET VOLUME 6.8 fl (7.4-10.4); MONOCYTES % 7.4 % (2.0-8.0); NEUTROPHILS % 78.7 % (40.0-76.0); PLATELET 306 x1000/uL (130-400); RED BLOOD CELL COUNT 3.88 mill/uL (4.2-5.4); RED CELL DISTRIBUTION WIDTH 17.8 % (11.6-14.6)
[2021-07-26] MEDS: BLOOD SUGAR DIAGNOSTIC STRIP TEST SCH ×4 (07:30→21:20)
[2021-07-26 07:46] LABS: CHLORIDE 115 mEq/L (98-107)
[2021-07-26 07:55] LABS: CREATINE KINASE 43 IU/L (26-192)
[2021-07-26 08:00] VITALS: BP 131/71
[2021-07-26] MEDS: INSULIN LISPRO 100 UNITS/ML SUBCUT SCH ×4 (08:00→21:00)
[2021-07-26] MEDS: FAMOTIDINE 20MG TABLET PO SCH (08:59)
[2021-07-26] MEDS: AMLODIPINE 10MG TABLET PO SCH (08:59)
[2021-07-26] MEDS: METOPROLOL TARTRATE 25MG TABLET PO SCH ×2 (08:59→21:27)
[2021-07-26] MEDS: FOLIC ACID 1MG TABLET PO SCH (08:59)
[2021-07-26] MEDS: LOSARTAN POTASSIUM 25 MG TABLET PO SCH (08:59)
[2021-07-26] MEDS: VANCOMYCIN 750MG PMX (XELLIA) 150 ML IV SCH ×2 (09:00→21:30)
[2021-07-26] MEDS: BISACODYL 10MG SUPP PR SCH (09:00)
[2021-07-26 12:00] VITALS: BP 143/75
[2021-07-26 16:00] VITALS: BP 119/59
[2021-07-26] MEDS: DEXTROSE 5% WATER 1,000 ML IV SCH (17:38)
[2021-07-26 19:53] VITALS: BP 141/75
[2021-07-27] VITALS: BP 132/64
[2021-07-27 04:00] VITALS: BP 154/83
[2021-07-27] MEDS: METOCLOPRAMIDE HCL 10MG/2ML VIAL IV SCH ×3 (05:43→18:09)
[2021-07-27] MEDS: BLOOD SUGAR DIAGNOSTIC STRIP TEST SCH ×4 (06:22→21:49)
[2021-07-27 07:17] LABS: BASOPHILS % 1.1 % (0.0-2.0); HEMATOCRIT. 29.1 % (36.0-48.0); HEMOGLOBIN. 9.6 g/dL (12.0-16.0); LYMPHOCYTES % 12.1 % (20.0-50.0); MEAN CORPUSCULAR HEMOGLOBIN 25.8 pg (28.0-32.0); MEAN CORPUSCULAR VOLUME 77.9 fL (81.0-99.0); MEAN PLATELET VOLUME 6.8 fl (7.4-10.4); MONOCYTES % 9.3 % (2.0-8.0); NEUTROPHILS % 75.5 % (40.0-76.0); PLATELET 334 x1000/uL (130-400); RED BLOOD CELL COUNT 3.74 mill/uL (4.2-5.4)
[2021-07-27 07:29] LABS: CHLORIDE 113 mEq/L (98-107)
[2021-07-27 07:50] VITALS: BP 152/78
[2021-07-27] MEDS: INSULIN LISPRO 100 UNITS/ML SUBCUT SCH ×4 (07:50→21:49)
[2021-07-27] MEDS: VANCOMYCIN 750MG PMX (XELLIA) 150 ML IV SCH ×2 (09:10→21:26)
[2021-07-27] MEDS: BISACODYL 10MG SUPP PR SCH (09:10)
[2021-07-27] MEDS: MULTIVITAMINS,THER W-MINERALS TABLET PO SCH ×2 (09:11→13:02)
[2021-07-27] MEDS: METOPROLOL TARTRATE 25MG TABLET PO SCH ×2 (09:11→21:26)
[2021-07-27] MEDS: FAMOTIDINE 20MG TABLET PO SCH (09:11)
[2021-07-27] MEDS: AMLODIPINE 10MG TABLET PO SCH (09:11)
[2021-07-27] MEDS: LOSARTAN POTASSIUM 25 MG TABLET PO SCH (09:12)
[2021-07-27] MEDS: FOLIC ACID 1MG TABLET PO SCH (09:12)
[2021-07-27 12:05] VITALS: BP 142/65
[2021-07-27] MEDS: DEXTROSE 5% WATER 1,000 ML IV SCH (13:02)
[2021-07-27 15:20] VITALS: BP 138/68
[2021-07-27 20:00] VITALS: BP 132/78
[2021-07-28] VITALS (7 sets, daily range): BP systolic 132–146; BP diastolic 65–73
[2021-07-28] MEDS: METOCLOPRAMIDE HCL 10MG/2ML VIAL IV SCH ×5 (01:07→23:50)
[2021-07-28 03:47] LABS: CLARITY URINE CLEAR (CLEAR); COLOR URINE YELLOW (YELLOW); KETONES URINE NEGATIVE (NEGATIVE); LEUKOCYTE ESTERASE URINE 1+ (NEGATIVE); NITRITE URINE NEGATIVE (NEGATIVE); OCCULT BLOOD URINE NEGATIVE (NEGATIVE); PROTEIN URINE 1+ (NEGATIVE); SPECIFIC GRAVITY URINE 1.017 (1.005-1.030); UROBILINOGEN URINE 0.2 E.U./dL (0.2-1.0)
[2021-07-28 05:43] LABS: HEMOGLOBIN. 9.3 g/dL (12.0-16.0); LYMPHOCYTES % 15.4 % (20.0-50.0); PLATELET 342 x1000/uL (130-400); RED BLOOD CELL COUNT 3.62 mill/uL (4.2-5.4)
[2021-07-28 05:47] LABS: EOSINOPHILS % 3.4 % (0.0-5.0); HEMATOCRIT. 28.3 % (36.0-48.0); MEAN CORPUSCULAR HEMOGLOBIN 25.8 pg (28.0-32.0); MEAN CORPUSCULAR VOLUME 78.2 fL (81.0-99.0); MEAN PLATELET VOLUME 6.7 fl (7.4-10.4); MONOCYTES % 10.8 % (2.0-8.0); NEUTROPHILS % 69.4 % (40.0-76.0)
[2021-07-28 05:57] LABS: CHLORIDE 111 mEq/L (98-107)
[2021-07-28] MEDS: BLOOD SUGAR DIAGNOSTIC STRIP TEST SCH ×4 (06:41→21:25)
[2021-07-28] MEDS: INSULIN LISPRO 100 UNITS/ML SUBCUT SCH ×4 (07:28→21:00)
[2021-07-28] MEDS: DEXTROSE 5% WATER 1,000 ML IV SCH (08:15)
[2021-07-28] MEDS: LOSARTAN POTASSIUM 25 MG TABLET PO SCH (09:19)
[2021-07-28] MEDS: FAMOTIDINE 20MG TABLET PO SCH (09:19)
[2021-07-28] MEDS: BISACODYL 10MG SUPP PR SCH (09:20)
[2021-07-28] MEDS: AMLODIPINE 10MG TABLET PO SCH (09:20)
[2021-07-28] MEDS: METOPROLOL TARTRATE 25MG TABLET PO SCH ×2 (09:20→20:22)
[2021-07-28] MEDS: MULTIVITAMINS,THER W-MINERALS TABLET PO SCH (09:20)
[2021-07-28] MEDS: FOLIC ACID 1MG TABLET PO SCH (09:21)
[2021-07-28] MEDS: VANCOMYCIN 750MG PMX (XELLIA) 150 ML IV SCH ×2 (09:59→21:41)
[2021-07-29] VITALS (7 sets, daily range): BP systolic 120–143; BP diastolic 51–72
[2021-07-29] MEDS: METOCLOPRAMIDE HCL 10MG/2ML VIAL IV SCH ×3 (06:26→18:14)
[2021-07-29] MEDS: DEXTROSE 5% WATER 1,000 ML IV SCH (06:26)
[2021-07-29 06:47] LABS: CHLORIDE 106 mEq/L (98-107)
[2021-07-29] MEDS: BLOOD SUGAR DIAGNOSTIC STRIP TEST SCH ×4 (07:20→21:00)
[2021-07-29] MEDS: INSULIN LISPRO 100 UNITS/ML SUBCUT SCH ×4 (07:50→21:00)
[2021-07-29] MEDS: FAMOTIDINE 20MG TABLET PO SCH (09:28)
[2021-07-29] MEDS: METOPROLOL TARTRATE 25MG TABLET PO SCH ×2 (09:28→21:00)
[2021-07-29] MEDS: FOLIC ACID 1MG TABLET PO SCH (09:28)
[2021-07-29] MEDS: MULTIVITAMINS,THER W-MINERALS TABLET PO SCH (09:28)
[2021-07-29] MEDS: LOSARTAN POTASSIUM 25 MG TABLET PO SCH (09:28)
[2021-07-29] MEDS: BISACODYL 10MG SUPP PR SCH (09:28)
[2021-07-29] MEDS: AMLODIPINE 10MG TABLET PO SCH (09:28)
[2021-07-29] MEDS: VANCOMYCIN 750MG PMX (XELLIA) 150 ML IV SCH (09:29)
== END 2021-07-29 22:30 | DRG 853 ==
LOC: ER 16:33 → 8WST 20:19 → EDBEDREQTM 20:23 → EDBEDREQ 20:23 → EDBEDREQSVC 20:23 → SUPCPDRO 22:10 → ENRESERV 23:32 → 5EST 07-16 18:45 → MICUNO 07-20 13:26 → 5EST 07-25 11:27 → 6WST 07-26 16:39 → 4WST 07-29 14:10 → UNDODISIN 07-29 22:30
PROVIDERS: ADMIT Internal Medicine; ATTEND Internal Medicine
PROC: 4A10X4Z Monitoring of Central Nervous Electrical Activity, External Approach (ICD-10-PCS; 2021-07-17)
PROC: 05H433Z Insertion of Infusion Device into Left Innominate Vein, Percutaneous Approach (ICD-10-PCS; 2021-07-17)
PROC: B54NZZA Ultrasonography of Left Upper Extremity Veins, Guidance (ICD-10-PCS; 2021-07-17)
PROC: 0W9F3ZZ Drainage of Abdominal Wall, Percutaneous Approach (ICD-10-PCS; 2021-07-18)
PROC: 00NX0ZZ Release Thoracic Spinal Cord, Open Approach (ICD-10-PCS; principal; 2021-07-20)
PROC: 009U0ZZ Drainage of Spinal Canal, Open Approach (ICD-10-PCS; 2021-07-20)
PROC: 01NB0ZZ Release Lumbar Nerve, Open Approach (ICD-10-PCS; 2021-07-20)
PROC: 009U0ZZ Drainage of Spinal Canal, Open Approach (ICD-10-PCS; 2021-07-20)
PROC: 4A11X4G Monitoring of Peripheral Nervous Electrical Activity, Intraoperative, External Approach (ICD-10-PCS; 2021-07-20)
PROC: 0BH17EZ Insertion of Endotracheal Airway into Trachea, Via Natural or Artificial Opening (ICD-10-PCS; 2021-07-20)
PROC: 5A1945Z Respiratory Ventilation, 24-96 Consecutive Hours (ICD-10-PCS; 2021-07-20)
PROC: 30233N1 Transfusion of Nonautologous Red Blood Cells into Peripheral Vein, Percutaneous Approach (ICD-10-PCS; 2021-07-23)
DX: A41.02 Sepsis due to Methicillin resistant Staphylococcus aureus (principal); G93.41 Metabolic encephalopathy; G82.50 Quadriplegia, unspecified; J96.00 Acute respiratory failure, unspecified whether with hypoxia or hypercapnia; G06.1 Intraspinal abscess and granuloma; E43 Unspecified severe protein-calorie malnutrition; N17.9 Acute kidney failure, unspecified; N39.0 Urinary tract infection, site not specified; M62.82 Rhabdomyolysis; E87.2 Acidosis; E87.0 Hyperosmolality and hypernatremia; K56.7 Ileus, unspecified; R65.20 Severe sepsis without septic shock; I10 Essential (primary) hypertension; E87.8 Other disorders of electrolyte and fluid balance, not elsewhere classified; Z20.822 Contact with and (suspected) exposure to COVID-19; E87.6 Hypokalemia; E66.9 Obesity, unspecified; D64.9 Anemia, unspecified; D50.9 Iron deficiency anemia, unspecified; R74.01 Elevation of levels of liver transaminase levels; E83.52 Hypercalcemia; G90.8 Other disorders of autonomic nervous system; Z68.30 Body mass index [BMI] 30.0-30.9, adult; Z86.73 Personal history of transient ischemic attack (TIA), and cerebral infarction without residual deficits; Z91.013 Allergy to seafood; Z79.899 Other long term (current) drug therapy; Z79.82 Long term (current) use of aspirin; Z82.49 Family history of ischemic heart disease and other diseases of the circulatory system; Z68.32 Body mass index [BMI] 32.0-32.9, adult; Z86.61 Personal history of infections of the central nervous system; Z98.1 Arthrodesis status
CPT/HCPCS: 20611; 36415; 36600; 70551; 71045; 72080; 72141; 72146; 72147; 72148; 72157; 72158; 72170; 73100; 74018; 74176; 76000; 76705; 76770; 76937; 80048; 80053; 80202; 81003; 82043; 82140; 82375; 82550; 82570; 82805; 82962; 83605; 83735; 83935; 84100; 84145; 84300; 84443; 84484; 84550; 85025; 85651; 86705; 86709; 86803; 86850; 86900; 86920; 87070; 87075; 87077; 87186; 87340; 87426; 88304; 88311; 92610; 93005; 93306; 93312; 93970; 93971; 94003; 95816; 99291; A6261; A9577; C1725; C1769; C1893; J0360; J0696; J1100; J1170; J1580; J1650; J1815; J2250; J2270; J2370; J2405; J2543; J2704; J2710; J2765; J3010; J3370; J3480; J3490; J7030; J7040; J7042; J7050; J7060; J7070; J7121; P9016; P9041; A4315